=== PATIENT | female | born 1965 | race Caucasian/White ===

== ENCOUNTER → 2024-01-21 12:33 | Outpatient (REF) | payer BC, SELFPAY | LOC: HWRAD 12:33 | PROVIDERS: ATTENDING PHYSICIAN Internal Medicine Hematology & Oncology; FAMILY PHYSICIAN Internal Medicine Geriatric Medicine | DX: D48.9 Neoplasm of uncertain behavior, unspecified (principal); R16.2 Hepatomegaly with splenomegaly, not elsewhere classified; F41.1 Generalized anxiety disorder; Z87.19 Personal history of other diseases of the digestive system; R91.1 Solitary pulmonary nodule; K80.12 Calculus of gallbladder with acute and chronic cholecystitis without obstruction; R63.4 Abnormal weight loss | CPT/HCPCS: 71260; 74177; Q9967 ==

== ENCOUNTER → 2024-01-27 17:38 | Outpatient (REF) | payer BC, SELFPAY | LOC: WDC 17:38 | PROVIDERS: ATTENDING PHYSICIAN Internal Medicine | DX: Z12.31 Encounter for screening mammogram for malignant neoplasm of breast (principal) | CPT/HCPCS: 77063; 77067 ==

== ENCOUNTER → 2025-06-13 15:02 | Outpatient (REF) | payer BC, SELFPAY | LOC: WDC 15:02 | PROVIDERS: ATTENDING PHYSICIAN Nurse Practitioner Adult Health | DX: Z12.31 Encounter for screening mammogram for malignant neoplasm of breast (principal) | CPT/HCPCS: 77063; 77067 ==

== ENCOUNTER → 2025-06-18 09:27 | Outpatient (REF) | payer BC, SELFPAY | LOC: WDC 09:27 | PROVIDERS: ATTENDING PHYSICIAN Nurse Practitioner Adult Health | DX: R92.8 Other abnormal and inconclusive findings on diagnostic imaging of breast (principal) | CPT/HCPCS: 76642 ==